=== PATIENT | male | born 1995 | race Hispanic/Latino ===

== ENCOUNTER 2021-11-13 19:43 | Emergency (ER) | payer OTHER ==
[~2021-11-13] VITALS: Ht 165.1 cm; Wt 72.0 kg
[2021-11-13] MEDS ORDERED: VOLTAREN75 MG PO (21:09)
[2021-11-13] MEDS ORDERED: KEFLEX500 MG PO (21:09)
[2021-11-13 21:28] VITALS: BP 128/74
== END 2021-11-13 21:28 | disposition home or self-care (01) | DRG 563 ==
LOC: ED 19:43 → EDBD 19:43 → ED 20:22
DX: S62.634B Displaced fracture of distal phalanx of right ring finger, initial encounter for open fracture (principal); W23.0XXA Caught, crushed, jammed, or pinched between moving objects, initial encounter; Y92.89 Other specified places as the place of occurrence of the external cause; Y99.0 Civilian activity done for income or pay